=== PATIENT | male | born 1940 | race Caucasian/White ===

== ENCOUNTER → 2016-10-28 | Outpatient (CLI) | payer OTHER, MEDICARE ==
[~2016-10-28] MED LIST: ALLOPURINOL 30300 M1 PO; CALTRATE-600 W1 EACH PO; CENTRUM COMPLE1 EACH PO; CITRUCEL POWD1418 GM PO; ESTER-C 1,0001 EACH PO; GLUCOSAMINE HC500 MG PO; K-DUR10 MEQ PO; NEXIUM40 MG PO; ZINC CHELATE50 MG PO
== END ==
LOC: ULTRA 07:32
DX: B19.20 Unspecified viral hepatitis C without hepatic coma (principal); R10.9 Unspecified abdominal pain; Z90.49 Acquired absence of other specified parts of digestive tract

== ENCOUNTER → 2017-11-25 | Outpatient (CLI) | payer OTHER, MEDICARE ==
[~2017-11-25] VITALS: Ht 170.2 cm; Wt 77.1 kg
[~2017-11-25] MED LIST changes: +ASPIRIN325 PO; +CALCIUM 600 +1 EAC1 PO; +CENTRUM SILVER1 EAC4 PO; +NEXIUM20 MG PO; +NORVASC5 MG PO; +POTASSIUM99 M1 PO; +SYNTHROID50 MCG PO; +VITAMIN C1000 MG PO
--- NOTE | ~2017-11-25 | P ---
[facility] [place] [address] PROCEDURE REPORT Name: RAYMON CAVANAUGH JR Room #: REG [facility]#: [id number] Admission: 11/25/17 Attend Phys: Shen Dutton Discharge: Date of : 36 Report #: [id number] THIS REPORT FOR: //name// CC: Shen Samuel MD DATE OF SERVICE: 11/25/2017 PROCEDURE PERFORMED: Colonoscopy. 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 Last, he has a history of colon polyps. He denies any symptoms at this time. No family history of colon cancer. DESCRIPTION OF PROCEDURE: The risks and benefits of the procedure were explained to the patient, those risks including but not limited to bleeding, perforation and the risk of sedation. He understood these risks and gave informed consent. Sedation was given using propofol per Anesthesia. Next, a digital rectal exam was initially performed, which was normal. Next, using a standard WooWhoinon colonoscope, the scope was placed in the patient's anus and advanced under direct vision to the right colon, at which point, surgical anastomosis was noted. This was well healed and widely patent. The terminal ileum was intubated and normal in appearance. The scope was then slowly withdrawn. The remaining descending colon was normal. Multiple diverticula were noted in the sigmoid colon. No evidence of inflammation, otherwise normal. The rectal mucosa was normal. On retroflexion, no abnormalities were noted. The scope was then withdrawn and the procedure terminated. The patient tolerated the procedure well. IMPRESSION: 1. Surgical changes noted in the right colon. 2. Sigmoid diverticulosis. 3. Otherwise, normal colonoscopy. RECOMMENDATIONS: No need for repeat colonoscopy due to the patient's age. Thank you for allowing me to participate in his care. <ELECTRONICALLY SIGNED> By: Shen Cabrera MD 11/27/17 0808 [id number] 1723 Shen Cabrera MD /nt
== END | disposition home or self-care (01) ==
LOC: GI 07:43
DX: Z09 Encounter for follow-up examination after completed treatment for conditions other than malignant neoplasm (principal); K57.30 Diverticulosis of large intestine without perforation or abscess without bleeding; I10 Essential (primary) hypertension; K21.9 Gastro-esophageal reflux disease without esophagitis; Z86.010 Personal history of colon polyps; Z85.46 Personal history of malignant neoplasm of prostate; Z98.0 Intestinal bypass and anastomosis status; Z85.528 Personal history of other malignant neoplasm of kidney; Z96.653 Presence of artificial knee joint, bilateral; Z79.82 Long term (current) use of aspirin; Z79.899 Other long term (current) drug therapy
CPT/HCPCS: 62110; 62900

== ENCOUNTER → 2018-08-09 | Outpatient (CLI) | payer OTHER, MEDICARE | LOC: ULTRA 08:53 → CAT 08:53 | DX: N40.0 Benign prostatic hyperplasia without lower urinary tract symptoms (principal); I82.4Z1 Acute embolism and thrombosis of unspecified deep veins of right distal lower extremity; K57.30 Diverticulosis of large intestine without perforation or abscess without bleeding; I70.0 Atherosclerosis of aorta; J98.11 Atelectasis; Q60.0 Renal agenesis, unilateral; R31.9 Hematuria, unspecified ==

== ENCOUNTER → 2019-05-25 | Outpatient (CLI) | payer OTHER, MEDICARE | LOC: MRI 10:46 | DX: R90.82 White matter disease, unspecified (principal); M48.00 Spinal stenosis, site unspecified ==

== ENCOUNTER 2021-09-17 11:31 | Inpatient (IN) | payer OTHER, MEDICARE ==
[~2021-09-17] VITALS: Ht 167.6 cm; Wt 68.9 kg
[2021-09-17 11:41] VITALS: BP 104/65
--- NOTE | 2021-09-17 14:03 | EKG ---
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 09/17/21 1403 1158 1158 Thanh Montes MD, FACC /EPI
[2021-09-17 16:05] VITALS: BP 138/66
[2021-09-17 16:26] VITALS: BP 138/66
[2021-09-17 16:54] VITALS: BP 148/74
--- NOTE | 2021-09-17 17:28 | NUR ---
ASSUMED CARE OF PT FROM ER AT 1640 THIS AFTERNOON. PT HAS ABD MASS WITH POSSIBLE IMPACTION OR POSSIBLE CA. PT IS A/OX4 WITH NO ISSUES SKIN INTACT WITH NO TENTING. PT IS FROM HOME. ASSESSMENTS NOTED IN CHART AND OTHERWISE UNREMARKABLE. NO FALL PRECAUTIONS NEEDED AND IS UP AT MANOHAR. CALL LIGHT AND OTHER NEEDS ARE IN REACH. MEDS AND TX NEEDED AND SCHEDULED. WILL MONITOR AND NOTE ANY CHANGES.
[2021-09-17 19:47] VITALS: BP 129/72
--- NOTE | 2021-09-18 02:28 | NUR ---
ASSUMED PT CARE AT 1900.PT ALERT AND IN NO DISTRESS AT SHIFT CHANGE.PT DENIED PAIN SO FAR.PT HAD A COUPLE OF LOOSE STOOL AT HS.PT CONT ON CLEAR LIQUID DIET.IVF FLUIDS INFUSING ORDERED.CALL LIGHT WITHIN REACH.
[2021-09-18 05:15] VITALS: BP 127/81
[2021-09-18 05:47] LABS: HEMATOCRIT 34.1 % (42.0-52.0); HEMOGLOBIN 11.3 gm/dL (14.0-18.0); MCH 27.6 pg (26.0-34.0); MCHC 33.2 g/dL (28.0-37.0); MCV 83.1 fL (80.0-100.0); RBC 4.11 mil/uL (4.50-6.00); RDW 16.2 % (10.5-14.5); WBC 3.8 thou/uL (4.0-11.0)
[2021-09-18 06:26] LABS: CALCIUM 8.8 mg/dL (8.5-10.1); CREATININE 0.9 mg/dL (0.7-1.3)
[2021-09-18 06:30] LABS: POTASSIUM 3.6 mmol/L (3.5-5.1)
--- NOTE | 2021-09-18 13:09 | NUR ---
RE-ASSUMED CARE OF PT AT 0700 THIS MORNING. PT IS A/OX4 AND INDEP AMBULATION. PT IS TO HAVE TESTS THROUGHOUT THE MORNING TO DIAG ISSUE IN GI SYSTEM. ASSESSMENTS UNCHANGED SINCE LAST NIGHT, NOTED IN CHART AND OTHERWISE UNREMARKABLE. CALL LIGHT AND OTHER NEEDS ARE IN REACH. PT HAS BEEN WALKING AROUND UNIT TO GET BOWEL MOV'T. MEDS AND TX GIVEN NEEDED AND SCHEDULED. WILL MONITOR AND NOTE ANY CHANGES.
[2021-09-18 15:47] VITALS: BP 124/70
--- NOTE | 2021-09-18 17:20 | NUR ---
Met with patient who admits wth abd pain and dixie loss. patient reports resides in independent home. He has a split level home. All needs on one level except shower. he reports he has railing on steps. He does not use and assistive device. independent with adls. Cont to drive. PCP Dr Samuel. patient reports he is . xwife lives in [place]. Cancer runs in family. His dtr only child of cancer 6 years ago. His sister Court has cancer. He has supportive nephew who is assisting his mom Steven and patient. [employer] following for dc planning and support.
[2021-09-18 19:59] VITALS: BP 122/76
[2021-09-19 07:24] VITALS: BP 101/61
--- NOTE | 2021-09-19 09:42 | NUR ---
ASSUMED PT CARE THIS AM. PT IS ALERT & ORIENTED X4 AND [place] AT TIMES. PT IS UP AD MANOHAR AND HAS BEEN AMBULATING THE HALLWAY THIS AM. PT HAS IV SITE ON LAC RUNNING NS @80ML/HR. PT IS ON ROOM AIR. PT TOLERATED DIET. NO C/O OF NAUSEA AND VOMITING. WILL CONTINUE TO MONITOR PT. FOLLOW POC.
[2021-09-19 16:49] VITALS: BP 130/75
[2021-09-19 20:49] VITALS: BP 132/65
--- NOTE | 2021-09-20 03:18 | NUR ---
RECEIVED CARE OF THIS PATIENT AT 1900. PATIENT ALERT AND ORIENTED X4. UP IN HALLS. DENIES PAIN. IV PATENT WITH FLUIDS INFUSING. SLEPT MOST OF NIGHT.
[2021-09-20 05:31] LABS: HEMATOCRIT 37.2 % (42.0-52.0); HEMOGLOBIN 12.2 gm/dL (14.0-18.0); MCH 27.3 pg (26.0-34.0); MCHC 32.8 g/dL (28.0-37.0); MCV 83.3 fL (80.0-100.0); RBC 4.47 mil/uL (4.50-6.00); RDW 16.1 % (10.5-14.5); WBC 5.7 thou/uL (4.0-11.0)
[2021-09-20 06:02] LABS: CALCIUM 9.2 mg/dL (8.5-10.1); CREATININE 0.9 mg/dL (0.7-1.3); POTASSIUM 3.4 mmol/L (3.5-5.1)
--- NOTE | 2021-09-20 08:46 | NUR ---
Assumed care of pt at 0700. Pt a&ox4. Up ad isra. Denies pain. Denies n/v. RA. IVF infusin. No complaints at this time. Call light within reach. Will continue to monitor.
[2021-09-20 14:30] VITALS: BP 132/65
== END 2021-09-20 15:06 | disposition home or self-care (01) | DRG 844 ==
LOC: ER 11:31 → 4S 16:03 → EROBS 16:03 → 4S 16:39
PROVIDERS: Hospitalist; Nurse Practitioner; ADMIT Family Medicine; ATTEND Family Medicine
DX: C48.0 Malignant neoplasm of retroperitoneum (principal); K31.5 Obstruction of duodenum; Z20.822 Contact with and (suspected) exposure to COVID-19; Z96.653 Presence of artificial knee joint, bilateral; K21.9 Gastro-esophageal reflux disease without esophagitis; I10 Essential (primary) hypertension; R19.00 Intra-abdominal and pelvic swelling, mass and lump, unspecified site; M10.9 Gout, unspecified; R63.4 Abnormal weight loss; E78.5 Hyperlipidemia, unspecified; E03.9 Hypothyroidism, unspecified; Z86.010 Personal history of colon polyps; Z68.24 Body mass index [BMI] 24.0-24.9, adult; Z87.891 Personal history of nicotine dependence; Z85.07 Personal history of malignant neoplasm of pancreas; Z90.5 Acquired absence of kidney; Z90.49 Acquired absence of other specified parts of digestive tract; Z92.3 Personal history of irradiation; Z79.82 Long term (current) use of aspirin; Z79.899 Other long term (current) drug therapy
CPT/HCPCS: 10195

== ENCOUNTER → 2021-09-17 | Outpatient (CLI) | payer OTHER, MEDICARE ==
[2021-09-17 09:53] LABS: ABSOLUTE NEUTROPHILS 4.4 thou/uL (1.4-8.2); BASOPHILS 0.4 % (0.0-2.0); EOSINOPHILS 1.1 % (0.0-3.0); HEMATOCRIT 36.3 % (42.0-52.0); HEMOGLOBIN 11.8 gm/dL (14.0-18.0); LYMPHOCYTES 17.7 % (24.0-44.0); MCH 26.9 pg (26.0-34.0); MCHC 32.6 g/dL (28.0-37.0); MCV 82.6 fL (80.0-100.0); MONOCYTES 8.8 % (1.0-8.0); PLATELET COUNT 270 thou/uL (150-400); RDW 16.1 % (10.5-14.5); WBC 6.1 thou/uL (4.0-11.0)
[2021-09-17 10:12] LABS: ALBUMIN 3.4 g/dL (3.4-5.0); CALCIUM 9.4 mg/dL (8.5-10.1); CREATININE 1.1 mg/dL (0.7-1.3); POTASSIUM 4.6 mmol/L (3.5-5.1); TOTAL BILIRUBIN 0.6 mg/dL (0.2-1.0); TOTAL PROTEIN 8.3 g/dL (6.4-8.2)
== END ==
LOC: CAT 09:16
PROVIDERS: ATTEND Family Medicine
DX: N28.89 Other specified disorders of kidney and ureter (principal); K59.1 Functional diarrhea; R10.9 Unspecified abdominal pain